=== PATIENT | male | born 1940 | race Caucasian/White ===

== ENCOUNTER → 2016-09-01 | Outpatient (CLI) | payer BC ==
[~2016-09-01] MED LIST: ADVIN10/60 INH; ALBUAER2 INH; ASPI1TAB83 PO; B-CO-25 PO; CINN1CAP2 PO; FERR1TAB62; GLUC500C4; LISI2.5T5 PO; MONT1TAB3 PO; MULTTAB58 PO; OMEGCAP2 PO; REDCAP2 PO
[2016-09-01 11:08] LABS: ESTIMATED AVERAGE GLUCOSE 120 mg/dl; HA1C FLAG Normal (Normal)
[2016-09-01 11:19] LABS: CALCIUM 9.5 mg/dl (8.5-10.1)
[2016-09-01 11:21] LABS: ALT/SGPT 31 U/L (12-78); BLOOD UREA NITROGEN 16 mg/dl (7-18); BUN/CREATININE RATIO 15.8 (10-20); CARBON DIOXIDE 30 mmol/L (21-32); CHLORIDE 103 mmol/L (98-107); CHOLESTEROL 226 mg/dl (0-200); GLUCOSE 143 mg/dl (70-99); SODIUM 139 mmol/L (136-145)
[2016-09-01 11:25] LABS: ALB/GLOB RATIO 1.2 (0.9-2); ALKALINE PHOSPHATASE 58 U/L (45-117); AST/SGOT 15 U/L (15-37); CHOLESTEROL/HDL RATIO 4.5; HDL CHOLESTEROL 50 mg/dl; LDL CHOLESTEROL CALCULATED 149 mg/dl; TRIGLYCERIDES 133 mg/dl (0-150); VERY LOW DENSITY LIPOPROT CALC 27 mg/dl
== END | disposition home or self-care (01) ==
LOC: C.LABBC 07:38
PROVIDERS: ATTEND Internal Medicine
DX: R73.01 Impaired fasting glucose (principal)

== ENCOUNTER → 2017-03-25 | Outpatient (CLI) | payer BC ==
[2017-03-25 10:56] LABS: BASO % 0.8 %; BASO ABS # 0.03 K/uL (0-0.2); COMPLETE YES; EOS % 3.5 %; HEMATOCRIT 43.7 % (42-52); IG% 0.5 %; LYMPH % 36.6 %; LYMPH ABS # 1.45 K/uL (1.2-3.4); MEAN CELL VOLUME 94.2 fL (80-100); MEAN CORPUSCULAR HEMOGLOBIN 32.3 pg (25-34); MEAN CORPUSCULAR HGB CONC 34.3 g/dl (32-36); MEAN PLATELET VOLUME 10.4 fL (7.4-10.4); MONO % 14.4 %; NEUT % 44.2 %; PLATELET COUNT 170 K/uL (130-400); RED BLOOD COUNT 4.64 M/uL (4.7-6.1); WHITE BLOOD COUNT 3.96 K/uL (4.8-10.8)
[2017-03-25 11:05] LABS: ESTIMATED AVERAGE GLUCOSE 117 mg/dl; HA1C FLAG Normal (Normal)
[2017-03-25 11:09] LABS: ALKALINE PHOSPHATASE 62 U/L (45-117); ALT/SGPT 28 U/L (12-78); BLOOD UREA NITROGEN 16 mg/dl (7-18); BUN/CREATININE RATIO 16.1 (10-20); CALCIUM 8.8 mg/dl (8.5-10.1); CARBON DIOXIDE 30 mmol/L (21-32); CHLORIDE 105 mmol/L (98-107); CHOLESTEROL 192 mg/dl (0-200); CREATININE 0.96 mg/dl (0.60-1.40); GLUCOSE 116 mg/dl (70-99); POTASSIUM 4.4 mmol/L (3.5-5.1); SODIUM 140 mmol/L (136-145); TRIGLYCERIDES 85 mg/dl (0-150); VERY LOW DENSITY LIPOPROT CALC 17 mg/dl
[2017-03-25 11:13] LABS: ALB/GLOB RATIO 1.4 (0.9-2); AST/SGOT 15 U/L (15-37); CHOLESTEROL/HDL RATIO 3.8; FERRITIN 179.6 ng/ml (8.0-388.0); HDL CHOLESTEROL 50 mg/dl; LDL CHOLESTEROL CALCULATED 125 mg/dl
== END | disposition home or self-care (01) ==
LOC: C.LABBC 07:54
PROVIDERS: ATTEND Urology
DX: N40.1 Benign prostatic hyperplasia with lower urinary tract symptoms (principal); J45.909 Unspecified asthma, uncomplicated; D50.9 Iron deficiency anemia, unspecified; I10 Essential (primary) hypertension; R73.01 Impaired fasting glucose; E78.5 Hyperlipidemia, unspecified

== ENCOUNTER → 2017-09-30 | Outpatient (CLI) | payer BC ==
[~2017-09-30] MED LIST changes: +LISI-1116 PO; -LISI2.5T5 PO
[2017-09-30 11:01] LABS: BASO % 0.8 %; BASO ABS # 0.03 K/uL (0-0.2); EOS % 3.7 %; EOS ABS # 0.14 K/uL (0-0.5); HEMATOCRIT 43.5 % (42-52); HEMOGLOBIN 15.3 g/dL (14.0-18.0); IG# 0.01 K/uL (0.00-0.02); LYMPH % 28.3 %; LYMPH ABS # 1.08 K/uL (1.2-3.4); MEAN CELL VOLUME 92.2 fL (80-100); MEAN CORPUSCULAR HEMOGLOBIN 32.4 pg (25-34); MEAN CORPUSCULAR HGB CONC 35.2 g/dl (32-36); MEAN PLATELET VOLUME 10.6 fL (7.4-10.4); MONO % 13.9 %; MONO ABS # 0.53 K/uL (0.11-0.59); NEUT ABS # 2.02 K/uL (1.4-6.5); PLATELET COUNT 146 K/uL (130-400); RED CELL DISTRIBUTION WIDTH CV 12.3 % (11.5-14.5); RED CELL DISTRIBUTION WIDTH SD 41.2 fL (36.4-46.3); WHITE BLOOD COUNT 3.81 K/uL (4.8-10.8)
[2017-09-30 11:36] LABS: ALBUMIN 3.7 gm/dl (3.4-5.0); ALKALINE PHOSPHATASE 64 U/L (45-117); ALT/SGPT 28 U/L (12-78); AST/SGOT 18 U/L (15-37); BLOOD UREA NITROGEN 17 mg/dl (7-18); CALCIUM 8.6 mg/dl (8.5-10.1); CARBON DIOXIDE 27 mmol/L (21-32); CHOLESTEROL 210 mg/dl (0-200); CREATININE 1.01 mg/dl (0.60-1.40); GLUCOSE 121 mg/dl (70-99); LDL CHOLESTEROL CALCULATED 137 mg/dl; SODIUM 137 mmol/L (136-145); TOTAL PROTEIN 7.1 gm/dl (6.4-8.2)
[2017-09-30 12:18] LABS: HEMOGLOBIN A1C 5.8 % (4.5-5.6)
== END | disposition home or self-care (01) ==
LOC: C.LABBC 07:49
PROVIDERS: ATTEND Internal Medicine
DX: Z00.00 Encounter for general adult medical examination without abnormal findings (principal); N40.1 Benign prostatic hyperplasia with lower urinary tract symptoms; D50.9 Iron deficiency anemia, unspecified; E78.5 Hyperlipidemia, unspecified; D72.819 Decreased white blood cell count, unspecified; R73.01 Impaired fasting glucose; I10 Essential (primary) hypertension

== ENCOUNTER → 2017-12-06 | Outpatient (CLI) | payer BC ==
[~2017-12-06] MED LIST changes: -ALBUAER2 INH; -B-CO-25 PO; +CALC600T9 PO; +CHOL20007 PO; -CINN1CAP2 PO; +CLR10 PO; -LISI-1116 PO; -MULTTAB58 PO; -REDCAP2 PO; +ROSU5TAB PO; +VALS160T58 PO; +VNTHFA/IN INH
[2017-12-06 14:27] LABS: ALKALINE PHOSPHATASE 59 U/L (45-117); ALT/SGPT 28 U/L (12-78); AST/SGOT 15 U/L (15-37); BLOOD UREA NITROGEN 20 mg/dl (7-18); CALCIUM 8.6 mg/dl (8.5-10.1); CARBON DIOXIDE 28 mmol/L (21-32); CHOLESTEROL 124 mg/dl (0-200); CREATININE 0.96 mg/dl (0.60-1.40); GLUCOSE 93 mg/dl (70-99); LDL CHOLESTEROL CALCULATED 57 mg/dl; POTASSIUM 3.9 mmol/L (3.5-5.1); SODIUM 139 mmol/L (136-145); TOTAL PROTEIN 6.8 gm/dl (6.4-8.2)
== END | disposition home or self-care (01) ==
LOC: C.LABBC 11:37
PROVIDERS: ATTEND Family Medicine Adult Medicine
DX: E78.5 Hyperlipidemia, unspecified (principal)

== ENCOUNTER → 2017-12-09 | Outpatient (CLI) | payer BC ==
--- NOTE | 2017-12-09 11:13 | DIAGNOSTIC IMAGING REPORT ---
ADDENDUM After completion of the exam, the human intelligence informed me that the left pelvic hernia is in fact medial, not lateral to the anterior superior iliac spine. Again, this is suspicious for a femoral hernia and correlation with clinical findings recommended. Electronically signed by: Joshua Talbert M.D. 12/09/2017 11:22 AM Dictated Date/Time: 12/09/2017 11:21 AM ORIGINAL REPORT ABDOMEN FOR HERNIA HISTORY: 77 years-old Male abdominal pain acute left inguinal pain COMPARISON: None available TECHNIQUE: Multiple real-time sonographic images of the left inguinal tissues were obtained assessing grayscale appearance and color flow FINDINGS: No left inguinal hernia identified. Several lymph nodes of the left inguinal chain are seen, largest which measures 2.7 x 1.0 x 1.8 cm. There is a small fat-containing reducible hernia noted inferior lateral to the anterior superior iliac spine, possibly reflecting a femoral hernia. IMPRESSION: 1. Small fat filled reducible hernia about the left lower pelvis, possibly a femoral hernia without inguinal hernia identified. 2. Indeterminate mildly prominent and enlarged lymph nodes of the left inguinal chain measuring up to 2.7 x 1.0 x 1.8 cm. The above report was generated using voice recognition software. It may contain grammatical, syntax or spelling errors. Electronically signed by: Joshua Talbert M.D. 12/09/2017 11:11 AM Dictated Date/Time: 12/09/2017 11:09 AM
== END | disposition home or self-care (01) ==
LOC: C.ULTRBC 10:35
PROVIDERS: ATTEND Family Medicine Adult Medicine
DX: K46.9 Unspecified abdominal hernia without obstruction or gangrene (principal)